=== PATIENT | female | born 1955 | race Caucasian/White ===

== ENCOUNTER → 2016-10-07 | Day surgery (SDC) | payer OTHER ==
[~2016-10-07] MED LIST: ACTOS30 MG PO; ASPIRIN; BAYER ASPIRIN325 M1 PO; FARYDAK10 MG PO; GLIPIZIDE10 MG PO; HYDROCHLOROTH12.5 M1 PO; JANUVIA PO; LISINOPRIL; LISINOPRIL20 MG PO; METFORMIN; METFORMIN PO; ZOCOR; ZOCOR PO
--- NOTE | ~2016-10-07 | OR ---
Unit #: [id number] #: [id number] Patient: RHETT CHACKO [id number] [address] [address] [id number] O MR#: [id number] NAME: RHETT CHACKO. ROOM: Date of Procedure: 10/07/2016 Admission Date: 10/07/2016 Surgeon: Merrick Peña M.D. : 1955 Attending Physician: Kahlil Goff M.D. Referring Physician: Kahlil Goff M.D. Primary Care Physician: Pascual Hernandes M.D. OPERATIVE REPORT PREOPERATIVE DIAGNOSIS Screening colonoscopy. POSTOPERATIVE DIAGNOSIS Screening colonoscopy. PROCEDURE PERFORMED Colonoscopy to cecum. ANESTHESIA Monitored anesthesia care. FINDINGS The patient was found to have a normal colon to the cecum. SPECIMENS None. COMPLICATIONS None apparent. CONDITION The patient tolerated the procedure well. INDICATIONS FOR PROCEDURE The patient is a 60-year-old white female. Her last colonoscopy was 10 years ago and was normal. She presents at this time for screening colonoscopy. DESCRIPTION OF PROCEDURE After obtaining informed consent, the patient was brought to the endoscopy suite and after adequate monitored anesthesia care, had the colonoscope placed through the anus and slowly advanced to the level of the cecum without difficulty with lumen always in view. The cecum was normal as was the ileocecal valve. The ascending colon was normal as was the hepatic flexure, transverse colon, splenic flexure, descending colon, sigmoid colon, and rectum. On retroflexing in the rectum to the anorectal junction, the patient was found to have no abnormality. The scope was removed without difficulty. The patient tolerated the procedure well and went from the endoscopy suite to recovery area in stable condition. RECOMMENDATIONS Unit #: [id number] #: [id number] Patient: RHETT CHACKO High-fiber diet, lots of liquids, tucks or wipes p.r.n. Follow up as needed. Dictated by... Phillip Carvalho/iris TD: 10/08/2016 02:37 JOB #: [id number] CC: Pascual Hernandes M.D. [facility] OPERATIVE REPORT Page 1 of 1 X Merrick Peña MD PROCEDURE OPERATIVE NOTE
== END | disposition home or self-care (01) ==
LOC: COPS 10:28
DX: Z12.11 Encounter for screening for malignant neoplasm of colon (principal); K21.9 Gastro-esophageal reflux disease without esophagitis; E11.9 Type 2 diabetes mellitus without complications; Z79.84 Long term (current) use of oral hypoglycemic drugs; Z90.710 Acquired absence of both cervix and uterus; Z79.82 Long term (current) use of aspirin
CPT/HCPCS: 82947